=== PATIENT | female | born 1950 | race Caucasian/White ===

== ENCOUNTER → 2018-08-21 | Outpatient (CLI) | payer MEDICARE ==
[2015-04-01 11:17] VITALS: BP 132/75
[~2018-08-21] MED LIST: ENOX40DI3 SQ; HYDR10TA66 PO; LEVO125T PO; PANT40TA5 PO
--- NOTE | 2018-08-21 15:50 | KCIC ---
Chest, PA and Lateral: Technique: PA and lateral views of the chest were obtained. History: Chest pain. Comparison: 03/22/2015. Findings: The heart and pulmonary vasculature appear within normal limits. The lungs are clear. The pleural margins are clear. Moderate degenerative changes thoracic spine. Impression: No acute chest process is seen. Electronically signed by: Wero Em MD (08/21/2018 3:47 PM) [place] [id number]
== END | disposition home or self-care (01) ==
LOC: KCIC 13:00
PROVIDERS: ATTEND Specialist
DX: M47.814 Spondylosis without myelopathy or radiculopathy, thoracic region (principal)
CPT/HCPCS: 71046